=== PATIENT | female | born 1950 | race African-American/Black ===

== ENCOUNTER 2017-10-20 12:56 | Observation (INO) | payer MEDICARE, MEDICAID ==
[2017-10-20] VITALS (11 sets, daily range): BP systolic 127–152; BP diastolic 62–74; PULSE 56–64; RESP 16–18; TEMP 98–98.6; O2SAT 97–99
[~2017-10-20] VITALS: Ht 157.5 cm; Wt 60.0 kg
[~2017-10-20 12:56] MED LIST: ATEN1TAB74 PO; BENZ1TAB PO; CALC500T21 PO; FLUP10 PO; HYDR-2768 PO; HYDR100T2 PO; PIOG15TA9 PO; PRAV20TA PO; RAMI10CA35 PO; RISP4TAB2 PO
--- NOTE | 2017-10-20 13:12 | PD ---
HPI Chief Complaint: Chest Pain Time Seen by Provider: 13:06 Travel History International Travel<30 days: No Contact w/Intl Traveler<30days: No Traveled to known affect area: No History of Present Illness HPI This is a 67-year-old female who presents from an assisted living facility. According to records from her [facility] she has a history of hyperlipidemia, hypertension, constipation as well as "psychiatric." Per our chart review it appears that she may have a history of schizoaffective disorder from ER visit notes over 10 years ago. She presents today via EMS for evaluation of chest pain. She reports a prior to arrival she was playing [email or web address] when she developed some substernal chest pain which she describes as a pressure. It lasted for 10 minutes and then resolved. She denies any shortness of breath, cough, congestion, nausea, vomiting, fevers, chills, abdominal pain. She is uncertain whether or not she has ever had this pain before. Denies any aspirin use today. PFSH Past Medical History Diabetes: Yes Hypertension: Yes Psychiatric: Yes ?: Not Social History Alcohol Use: No Tobacco Use: No Substance Use: No Allergies-Medications (Allergen,Severity, Reaction): Coded Allergies: No Known Allergies (Unverified , 02/09/15) Reported Meds & Prescriptions Reported Meds & Active Scripts Active Reported Calcium 600+D 200 (Calcium Carbonate-Vitamin D) 600-200 Mg-Unit Tab 1 Tab PO BID Risperdal (Risperidone) 4 Mg Tab 4 Mg PO Q12HR Tylenol Extra Strength (Acetaminophen) 500 Mg Tablet 500 Mg PO BID Altace (Ramipril) 10 Mg Cap 10 Mg PO BID Actos (Pioglitazone HCl) 15 Mg Tab 15 Mg PO DAILY Tenormin (Atenolol) 25 Mg Tab 25 Mg PO DAILY Hydrochlorothiazide 12.5 Mg Cap 12.5 Mg PO DAILY Fluphenazine Decanoate Inj (Fluphenazine Decanoate) 125 Mg/5 Ml Inj 50 Mg SQ EVERY 3 WEEKS Remeron (Mirtazapine) 30 Mg Tab 30 Mg PO HS Pravachol (Pravastatin) 20 Mg Tab 20 Mg PO HS Hydralazine HCl 50 Mg Tablet 50 Mg PO TID Benztropine (Benztropine Mesylate) 0.5 Mg Tab 2 Mg PO BID Review of Systems Except as stated in HPI: all other systems reviewed are Neg Physical Exam Narrative GENERAL: Well-developed well-nourished female in no acute distress SKIN: Warm and dry. HEAD: Atraumatic. Normocephalic. EYES: Pupils equal and round. No scleral icterus. No injection or drainage. ENT: No nasal bleeding or discharge. Mucous membranes pink and moist. NECK: Trachea midline. No JVD. CARDIOVASCULAR: Regular rate and rhythm. No murmur appreciated. RESPIRATORY: No accessory muscle use. Clear to auscultation. Breath sounds equal bilaterally. GASTROINTESTINAL: Abdomen soft, non-tender, nondistended. Hepatic and splenic margins not palpable. MUSCULOSKELETAL: No obvious deformities. No clubbing. No cyanosis. No edema. NEUROLOGICAL: Awake and alert. No obvious cranial nerve deficits. Motor grossly within normal limits. Normal speech. PSYCHIATRIC: Appropriate mood and affect; insight and judgment normal. Data Data Last Documented VS Vital Signs Date Time Temp Pulse Resp B/P (MAP) Pulse Ox O2 Delivery O2 Flow Rate FiO2 10/20/17 13:16 99 Room Air 10/20/17 13:10 56 18 10/20/17 13:04 142/65 (90) Orders Orders Electrocardiogram (10/20/17 13:09) Basic Metabolic Panel (Bmp) (10/20/17 13:09) Ckmb (Isoenzyme) Profile (10/20/17 13:09) Complete Blood Count With Diff (10/20/17 13:09) Magnesium (Mg) (10/20/17 13:09) Prothrombin Time / Inr (Pt) (10/20/17 13:09) Act Partial Throm Time (Ptt) (10/20/17 13:09) Troponin I (10/20/17 13:09) Chest, Single Ap (10/20/17 13:09) Ecg Monitoring (10/20/17 13:09) Bilateral Bp Monitoring (10/20/17 13:09) Iv Access Insert/Monitor (10/20/17 13:09) Oximetry (10/20/17 13:09) Oxygen Administration (10/20/17 13:09) Aspirin Chew (Aspirin Chew) (10/20/17 13:15) Sodium Chloride 0.9% Flush (Ns Flush) (10/20/17 13:15) CKMB (10/20/17 13:30) CKMB% (10/20/17 13:30) Admit Order (Ed Use Only) (10/20/17 14:39) Labs Laboratory Tests Test 10/20/17 13:30 White Blood Count 6.1 TH/MM3 Red Blood Count 4.02 MIL/MM3 Hemoglobin 12.8 GM/DL Hematocrit 37.5 % Mean Corpuscular Volume 93.4 FL Mean Corpuscular Hemoglobin 31.8 PG Mean Corpuscular Hemoglobin Concent 34.1 % Red Cell Distribution Width 14.0 % Platelet Count 214 TH/MM3 Mean Platelet Volume 8.2 FL Neutrophils (%) (Auto) 52.6 % Lymphocytes (%) (Auto) 35.5 % Monocytes (%) (Auto) 9.7 % Eosinophils (%) (Auto) 0.9 % Basophils (%) (Auto) 1.3 % Neutrophils # (Auto) 3.2 TH/MM3 Lymphocytes # (Auto) 2.2 TH/MM3 Monocytes # (Auto) 0.6 TH/MM3 Eosinophils # (Auto) 0.1 TH/MM3 Basophils # (Auto) 0.1 TH/MM3 CBC Comment DIFF FINAL Differential Comment Prothrombin Time 10.2 SEC Prothromb Time International Ratio 1.0 RATIO Activated Partial Thromboplast Time 22.3 SEC Blood Urea Nitrogen 9 MG/DL Creatinine 0.85 MG/DL Random Glucose 97 MG/DL Calcium Level 9.0 MG/DL Magnesium Level 1.7 MG/DL Sodium Level 131 MEQ/L Potassium Level 3.5 MEQ/L Chloride Level 96 MEQ/L Carbon Dioxide Level 30.3 MEQ/L Anion Gap 5 MEQ/L Estimat Glomerular Filtration Rate 81 ML/MIN Total Creatine Kinase 139 U/L Creatine Kinase MB 0.9 NG/ML Troponin I LESS THAN 0.02 NG/ML MDM Medical Decision Making Medical Screen Exam Complete: Yes Emergency Medical Condition: Yes Medical Record Reviewed: Yes Interpretation(s) EKG reveals sinus rhythm, T-wave inversions noted in the inferior leads Differential Diagnosis Angina, acute coronary syndrome, costochondritis, pericarditis, myocarditis, pneumonia, spontaneous pneumothorax Narrative Course The patient was placed on ECG monitoring pulse oximetry. A twelve-lead EKG was obtained. Plan is for basic lab work, chest x-ray. The patient was given a full dose aspirin. The patient remained chest pain-free during her hospital stay. Lab work and chest x-ray are reassuring. At this point in time the plan would be to admit the patient into the chest pain center for serial cardiac enzymes and rule out purposes. She is agreeable. Diagnosis Primary Impression: Chest pain Admitting Information Admitting Physician Requests: Observation Holger Parks Oct 20, 2017 13:12
[2017-10-20] MEDS ORDERED: ASPIRIN 81 MG CHEW TAB PO ONE (13:15)
[2017-10-20] MEDS ORDERED: ATEN1TAB73 PO (13:29)
[2017-10-20] MEDS ORDERED: RISP4TAB41 PO (13:29)
[2017-10-20] MEDS ORDERED: REME30TA PO (13:29)
[2017-10-20] MEDS ORDERED: HYDR12.57 PO (13:29)
[2017-10-20] MEDS ORDERED: ACET-822 PO (13:29)
[2017-10-20] MEDS ORDERED: ALTA10CA12 PO (13:29)
[2017-10-20] MEDS ORDERED: PRAV20TA PO (13:29)
[2017-10-20] MEDS ORDERED: HYDR-3800 PO (13:29)
[2017-10-20] MEDS ORDERED: BENZ0.5T PO (13:29)
[2017-10-20] MEDS ORDERED: FLUP1INJ SQ (13:29)
[2017-10-20] MEDS ORDERED: TH C600T4 PO (13:29)
[2017-10-20] MEDS ORDERED: ACTO15TA22 PO (13:29)
[2017-10-20] MEDS ORDERED: CALCTAB19 PO (13:30)
[2017-10-20 13:52] LABS: AUTOMATED NEUTROPHIL # 3.2 TH/MM3 (1.8-7.7); BASOPHIL # 0.1 TH/MM3 (0-0.2); BASOPHIL % 1.3 % (0.0-2.0); EOSINOPHIL # 0.1 TH/MM3 (0-0.4); EOSINOPHIL % 0.9 % (0.0-4.0); HEMATOCRIT 37.5 % (35.0-46.0); HEMOGLOBIN 12.8 GM/DL (11.6-15.3); LYMPH % 35.5 % (9.0-44.0); LYMPHOCYTE # 2.2 TH/MM3 (1.0-4.8); MEAN CELL VOLUME 93.4 FL (80.0-100.0); MEAN CORPUSCULAR HEMOGLOBIN 31.8 PG (27.0-34.0); MEAN CORPUSCULAR HGB CONC 34.1 % (32.0-36.0); MEAN PLATELET VOLUME 8.2 FL (7.0-11.0); MONO % 9.7 % (0.0-8.0); MONOCYTE # 0.6 TH/MM3 (0-0.9); NEUT % 52.6 % (16.0-70.0); PLATELET COUNT 214 TH/MM3 (150-450); RED BLOOD COUNT 4.02 MIL/MM3 (4.00-5.30); WHITE BLOOD COUNT 6.1 TH/MM3 (4.0-11.0)
[2017-10-20 14:05] LABS: PROTHROMBIN TIME - PATIENT 10.2 SEC (9.8-11.6)
[2017-10-20 14:15] LABS: BICARBONATE 30.3 MEQ/L (21.0-32.0); BLOOD UREA NITROGEN 9 MG/DL (7-18); CHLORIDE 96 MEQ/L (98-107); CREATININE 0.85 MG/DL (0.50-1.00); GLOMERULAR FILTRATION RATE 81 ML/MIN (>89); GLUCOSE,RANDOM 97 MG/DL (74-106); SODIUM (NA) 131 MEQ/L (136-145); TROPONIN I LESS THAN 0.02 NG/ML (0.02-0.05)
[2017-10-20 14:16] LABS: MAGNESIUM 1.7 MG/DL (1.5-2.5)
--- NOTE | 2017-10-20 14:28 | RADRPT ---
EXAM DATE/TIME: 10/20/2017 13:53 [facility] COMPARISON: No previous studies available for comparison. INDICATIONS : Chest pain. MEDICAL HISTORY : Hypercholesterolemia. Hypertension Diabetes mellitus type II. SURGICAL HISTORY : None. ENCOUNTER: Initial ACUITY: 1 day PAIN SCORE: 5/10 LOCATION: Bilateral chest FINDINGS: The cardiac silhouette is enlarged in transverse diameter. The lungs are free of acute parenchymal op acity. No effusions are identified. Osseous structures are intact. CONCLUSION: Cardiomegaly. No acute cardiopulmonary disease. Adolfo Walter MD on October 20, 2017 at 14:25 Board Certified Radiologist. This report was verified electronically.
--- NOTE | 2017-10-20 14:51 | PD ---
Physical Exam Narrative GENERAL: Well-nourished, well-developed patient. SKIN: Warm and dry. HEAD: Normocephalic and atraumatic. EYES: No injection or drainage. ENT: No nasal drainage noted. NECK: Supple, trachea midline. CARDIOVASCULAR: Regular rate and rhythm RESPIRATORY: no increased effort. No accessory muscle use. NEUROLOGICAL: Awake and alert. Motor and sensory grossly within normal limits. Normal speech Data Data Last Documented VS Vital Signs Date Time Temp Pulse Resp B/P (MAP) Pulse Ox O2 Delivery O2 Flow Rate FiO2 10/20/17 13:16 99 Room Air 10/20/17 13:10 56 18 10/20/17 13:04 142/65 (90) Orders Orders Electrocardiogram (10/20/17 13:09) Basic Metabolic Panel (Bmp) (10/20/17 13:09) Ckmb (Isoenzyme) Profile (10/20/17 13:09) Complete Blood Count With Diff (10/20/17 13:09) Magnesium (Mg) (10/20/17 13:09) Prothrombin Time / Inr (Pt) (10/20/17 13:09) Act Partial Throm Time (Ptt) (10/20/17 13:09) Troponin I (10/20/17 13:09) Chest, Single Ap (10/20/17 13:09) Ecg Monitoring (10/20/17 13:09) Bilateral Bp Monitoring (10/20/17 13:09) Iv Access Insert/Monitor (10/20/17 13:09) Oximetry (10/20/17 13:09) Oxygen Administration (10/20/17 13:09) Aspirin Chew (Aspirin Chew) (10/20/17 13:15) Sodium Chloride 0.9% Flush (Ns Flush) (10/20/17 13:15) CKMB (10/20/17 13:30) CKMB% (10/20/17 13:30) Admit Order (Ed Use Only) (10/20/17 14:39) Labs Laboratory Tests Test 10/20/17 13:30 White Blood Count 6.1 TH/MM3 Red Blood Count 4.02 MIL/MM3 Hemoglobin 12.8 GM/DL Hematocrit 37.5 % Mean Corpuscular Volume 93.4 FL Mean Corpuscular Hemoglobin 31.8 PG Mean Corpuscular Hemoglobin Concent 34.1 % Red Cell Distribution Width 14.0 % Platelet Count 214 TH/MM3 Mean Platelet Volume 8.2 FL Neutrophils (%) (Auto) 52.6 % Lymphocytes (%) (Auto) 35.5 % Monocytes (%) (Auto) 9.7 % Eosinophils (%) (Auto) 0.9 % Basophils (%) (Auto) 1.3 % Neutrophils # (Auto) 3.2 TH/MM3 Lymphocytes # (Auto) 2.2 TH/MM3 Monocytes # (Auto) 0.6 TH/MM3 Eosinophils # (Auto) 0.1 TH/MM3 Basophils # (Auto) 0.1 TH/MM3 CBC Comment DIFF FINAL Differential Comment Prothrombin Time 10.2 SEC Prothromb Time International Ratio 1.0 RATIO Activated Partial Thromboplast Time 22.3 SEC Blood Urea Nitrogen 9 MG/DL Creatinine 0.85 MG/DL Random Glucose 97 MG/DL Calcium Level 9.0 MG/DL Magnesium Level 1.7 MG/DL Sodium Level 131 MEQ/L Potassium Level 3.5 MEQ/L Chloride Level 96 MEQ/L Carbon Dioxide Level 30.3 MEQ/L Anion Gap 5 MEQ/L Estimat Glomerular Filtration Rate 81 ML/MIN Total Creatine Kinase 139 U/L Creatine Kinase MB 0.9 NG/ML Troponin I LESS THAN 0.02 NG/ML MDM Supervised Visit with BRISA: Yes Interpretation(s) CBC & BMP Diagram 10/20/17 13:30 Calcium Level 9.0, Magnesium Level 1.7 Last 24 hours Impressions Chest X-Ray 10/20/17 1309 Signed Impressions: Service Date/Time: Friday, October 20, 2017 13:53 - CONCLUSION: Cardiomegaly. No acute cardiopulmonary disease. Adolfo Walter MD Narrative Course I, Dr. easton, have reviewed the advance practice practitioner's documentation and am in agreement, met with the patient face to face, made the diagnosis, and the medical decision making was done by me. *My assessment and Findings: 67-year-old female presents with chest pain. Initial cardiac workup no acute. Agrees to observation Physician Communication Physician Communication dr sosa agrees to admit Diagnosis Primary Impression: Chest pain Qualified Codes: R07.9 - Chest pain, unspecified Admitting Information Admitting Physician Requests: Observation Jeanne Easton MD Oct 20, 2017 14:51
[2017-10-20] MEDS ORDERED: ONDANSETRON HCL 4 MG/2 ML VIAL IV PUSH PRN (15:15)
[2017-10-20] MEDS ORDERED: ACETAMINOPHEN 500 MG CPLT PO PRN (15:15)
[2017-10-20] MEDS ORDERED: ACETAMINOPHEN/HYDROcodone 325 MG/7.5 MG TAB PO PRN (15:15)
--- NOTE | 2017-10-20 15:27 | HHI.HP ---
HPI Primary Care Physician No Primary Care Physician Chief Complaint Chest pain History of Present Illness This is a 67-year-old female that presents to ED via ambulance from [facility] with a client of chest discomfort. She states it occurred while she was playing solitaire. Points to the substernal region her chest. Describes as "real bad." Lasted 5 minutes. Did not radiate. Found nothing to worsen or improve it. States the discomfort had resolved before the ambulance had arrived. Has not recurred. Denies shortness breath, nausea, or diaphoresis. Denies recent illness. Denies fevers or chills. The patient's daughter and brother at the bedside. Denies history of CAD. Her daughter states that she believes she had a chemical stress test a few years ago at a different facility. Does not know the results. Review of Systems General: Patient denies fevers, chills recent, and recent travel HEENT: Patient denies headache, sore throat, difficulty swallowing. Cardiovascular: Has the chest discomfort as mentioned above. Denies sensation of heart beating rapidly or irregularly. No syncope. Denies diaphoresis. Respiratory: Denies shortness of breath or inspirational chest discomfort. Denies coughing wheezing or hemoptysis. GI: Patient denies nausea, vomiting, diarrhea, abdominal pain, bloody stools. Musculoskeletal: Patient denies joint pain or edema. Denies calf pain or edema. Neurovascular: Patient denies numbness, tingling, weakness in extremities. Denies headache. Endocrine: Denies polyuria and polydipsia. Hematologic: Denies easy bruising. Skin: Denies rash or itching. Past Family Social History Allergies: Coded Allergies: No Known Allergies (Unverified , 02/09/15) Past Medical History Hypertension, hyperlipidemia, diabetes, tobacco abuse, schizoaffective disorder. Denies CAD. Past Surgical History Noncontributory. Reported Medications Reported Meds & Active Scripts Active Reported Calcium 600+D 200 (Calcium Carbonate-Vitamin D) 600-200 Mg-Unit Tab 1 Tab PO BID Risperdal (Risperidone) 4 Mg Tab 4 Mg PO Q12HR Tylenol Extra Strength (Acetaminophen) 500 Mg Tablet 500 Mg PO BID Altace (Ramipril) 10 Mg Cap 10 Mg PO BID Actos (Pioglitazone HCl) 15 Mg Tab 15 Mg PO DAILY Tenormin (Atenolol) 25 Mg Tab 25 Mg PO DAILY Hydrochlorothiazide 12.5 Mg Cap 12.5 Mg PO DAILY Fluphenazine Decanoate Inj (Fluphenazine Decanoate) 125 Mg/5 Ml Inj 50 Mg SQ EVERY 3 WEEKS Remeron (Mirtazapine) 30 Mg Tab 30 Mg PO HS Pravachol (Pravastatin) 20 Mg Tab 20 Mg PO HS Hydralazine HCl 50 Mg Tablet 50 Mg PO TID Benztropine (Benztropine Mesylate) 0.5 Mg Tab 2 Mg PO BID Active Ordered Medications Current Medications Medications (Trade) Dose Ordered Sig/Cristina Route Start Time Stop Time Status Last Admin (NS Flush) 2 ml UNSCH PRN IVF 10/20/17 13:15 (Tylenol) 500 mg Q4H PRN PO 10/20/17 15:15 UNV (Blodgett 7.5-325 Mg) 1 tab Q4H PRN PO 10/20/17 15:15 UNV (Zofran Inj) 4 mg Q6H PRN IV PUSH 10/20/17 15:15 UNV (Aspirin) 325 mg DAILY PO 10/21/17 09:00 UNV (Tenormin) 25 mg DAILY PO 10/21/17 09:00 UNV (Cogentin) 2 mg BID PO 10/20/17 21:00 UNV (Apresoline) 50 mg TID PO 10/20/17 18:00 UNV (Microzide) 12.5 mg DAILY PO 10/21/17 09:00 UNV (Remeron Soltab Odt) 30 mg HS PO 10/20/17 21:00 UNV (Pravachol) 20 mg HS PO 10/20/17 21:00 UNV (Altace) 10 mg BID PO 10/20/17 21:00 UNV Non-Formulary Medication 1 tab BID PO 10/20/17 21:00 UNV Non-Formulary Medication 4 mg Q12HR PO 10/20/17 21:00 UNV Family History Denies family history of CAD. Social History Continues to smoke about one half pack of cigarettes daily for 35 years. Denies alcohol or illicit drugs. Lives at [facility]. Physical Exam Vital Signs Vital Signs Date Time Temp Pulse Resp B/P (MAP) Pulse Ox O2 Delivery O2 Flow Rate FiO2 10/20/17 13:16 99 Room Air 10/20/17 13:16 99 Room Air 10/20/17 13:10 56 18 99 Room Air 10/20/17 13:04 56 18 142/65 (90) 99 Physical Exam GENERAL: This is a well-nourished, well-developed patient, in no apparent distress. Patient speaks in clear complete sentences. Patient is pleasant. HEENT: Head is atraumatic and normocephalic. Neck is supple without lymphadenopathy and trachea is midline. No JVD or carotid bruits. CARDIOVASCULAR: Grade 2 systolic murmur right sternal border. Does not radiate to the neck. Regular rate and rhythm without gallops or rubs. RESPIRATORY: Mild expiratory wheezes bilateral bases. Breath sounds equal bilaterally. No rales or rhonchi. Chest wall is nontender. No use of accessory muscles. GASTROINTESTINAL: Abdomen is nontender, nondistended. Abdomen soft. No obvious pulsatile mass or bruit. No CVA tenderness. Strong femoral pulses bilaterally. Normal bowel sounds in all quadrants. MUSCULOSKELETAL: Patient is moving upper and lower extremities freely. No calf tenderness or edema, no Homans sign. Strong pulses in upper and lower extremities. NEUROLOGICAL: Patient is alert and oriented. Cranial nerves 2-12 are grossly intact. No focal deficits and speech is clear. SKIN: No rash and turgor is normal. Laboratory Laboratory Tests Test 10/20/17 13:30 White Blood Count 6.1 Red Blood Count 4.02 Hemoglobin 12.8 Hematocrit 37.5 Mean Corpuscular Volume 93.4 Mean Corpuscular Hemoglobin 31.8 Mean Corpuscular Hemoglobin Concent 34.1 Red Cell Distribution Width 14.0 Platelet Count 214 Mean Platelet Volume 8.2 Neutrophils (%) (Auto) 52.6 Lymphocytes (%) (Auto) 35.5 Monocytes (%) (Auto) 9.7 Eosinophils (%) (Auto) 0.9 Basophils (%) (Auto) 1.3 Neutrophils # (Auto) 3.2 Lymphocytes # (Auto) 2.2 Monocytes # (Auto) 0.6 Eosinophils # (Auto) 0.1 Basophils # (Auto) 0.1 CBC Comment DIFF FINAL Differential Comment Prothrombin Time 10.2 Prothromb Time International Ratio 1.0 Activated Partial Thromboplast Time 22.3 Blood Urea Nitrogen 9 Creatinine 0.85 Random Glucose 97 Calcium Level 9.0 Magnesium Level 1.7 Sodium Level 131 Potassium Level 3.5 Chloride Level 96 Carbon Dioxide Level 30.3 Anion Gap 5 Estimat Glomerular Filtration Rate 81 Total Creatine Kinase 139 Creatine Kinase MB 0.9 Troponin I LESS THAN 0.02 Result Diagram: 10/20/17 1330 10/20/17 1330 Imaging Last 48 hours Impressions Chest X-Ray 10/20/17 1309 Signed Impressions: Service Date/Time: Friday, October 20, 2017 13:53 - CONCLUSION: Cardiomegaly. No acute cardiopulmonary disease. Adolfo Walter MD Course Initial EKG sinus bradycardia without significant ST segment depressions or elevations. There are nonspecific inferior and lateral T-wave changes. Caprini VTE Risk Assessment Caprini VTE Risk Assessment: Mod/High Risk (score >= 2) Caprini Risk Assessment Model Point Value = 1 Point Value = 2 Point Value = 3 Point Value = 5 Age 41-60 Minor surgery BMI > 25 kg/m2 Swollen legs Varicose veins or History of unexplained or recurrent spontaneous Oral contraceptives or hormone replacement Sepsis (< 1 month) Serious lung disease, including pneumonia (< 1 month) Abnormal pulmonary function Acute myocardial infarction Congestive heart failure (< 1 month) History of inflammatory bowel disease Medical patient at bed rest Age 61-74 Arthroscopic surgery Major open surgery (> 45 min) Laparoscopic surgery (> 45 min) Malignancy Confined to bed (> 72 hours) Immobilizing plaster cast Central venous access Age >= 75 History of VTE Family history of VTE Factor V Leiden Prothrombin [id number] Lupus anticoagulant Anticardiolipin antibodies Elevated serum homocysteine Heparin-induced thrombocytopenia Other congenital or acquired thrombophilia Stroke (< 1 month) Elective arthroplasty Hip, pelvis, or leg fracture Acute spinal cord injury (< 1 month) Prophylaxis Regimen Total Risk Factor Score Risk Level Prophylaxis Regimen 0-1 Low Early ambulation 2 Moderate Order ONE of the following: *Sequential Compression Device (SCD) *Heparin 5000 units SQ BID 3-4 Higher Order ONE of the following medications: *Heparin 5000 units SQ TID *Enoxaparin/Lovenox 40 mg SQ daily (WT < 150 kg, CrCl > 30 mL/min) *Enoxaparin/Lovenox 30 mg SQ daily (WT < 150 kg, CrCl > 10-29 mL/min) *Enoxaparin/Lovenox 30 mg SQ BID (WT < 150 kg, CrCl > 30 mL/min) AND/OR *Sequential Compression Device (SCD) 5 or more Highest Order ONE of the following medications: *Heparin 5000 units SQ TID (Preferred with Epidurals) *Enoxaparin/Lovenox 40 mg SQ daily (WT < 150 kg, CrCl > 30 mL/min) *Enoxaparin/Lovenox 30 mg SQ daily (WT < 150 kg, CrCl > 10-29 mL/min) *Enoxaparin/Lovenox 30 mg SQ BID (WT < 150 kg, CrCl > 30 mL/min) AND *Sequential Compression Device (SCD) Assessment and Plan Assessment and Plan * Chest pain: Patient will continue to have serial cardiac enzymes and EKGs for ruling out purposes. She has been seen by Dr. Beach of cardiology in the chest pain center and will have a Lexiscan in the morning if she rules out. The patient and family are agreeable to this plan. She'll be discharged home if her stress test is nonischemic with instructions to follow back with PCP and to return to ED for interval issues. * Hypertension: Continue current medication. * Hyperlipidemia: Continue current medication. * Diabetes: Diabetic diet. Sliding scale insulin coverage while in chest pain center. Resume medication at discharge and continue diabetic diet. * Tobacco abuse: Patient has been counseled on importance of smoking cessation. Patient is stable at this time. She is agreeable to this plan. Hudson Yin Oct 20, 2017 15:27
[2017-10-20] MEDS ORDERED: DEXTROSE 50% IN WATER 50 ML VIAL(D50) IV PUSH PRN (15:30)
[2017-10-20] MEDS ORDERED: GLUCAGON 1 MG/ML VIAL OTHER PRN (15:30)
[2017-10-20] MEDS ORDERED: RESP: ALBUTEROL 2.5 MG/IPRATROPIUM 0.5 MG NEB (PRN) INH (15:30)
[2017-10-20] MEDS: INSULIN ASPART SUPPLEMENTAL SCALE SQ SCH ×2 (17:00→21:00)
[2017-10-20] MEDS: hydrALAZINE HCL 50 MG TAB PO SCH (17:17)
[2017-10-20 17:39] LABS: TROPONIN I LESS THAN 0.02 NG/ML (0.02-0.05)
[2017-10-20] MEDS ORDERED: NON-FORMULARY DRUG (Calcium Carbonate-Vitamin D (Calcium 600+D 200) 1 TAB) PO SCH (21:00)
[2017-10-20] MEDS ORDERED: PRAVASTATIN SOD 20 MG TAB PO SCH (21:00)
[2017-10-20] MEDS ORDERED: MIRTAZAPINE ODT 30 MG TAB PO SCH (21:00)
[2017-10-20 21:15] LABS: TROPONIN I LESS THAN 0.02 NG/ML (0.02-0.05)
[2017-10-20] MEDS: SODIUM CHLORIDE 0.9% FLUSH 10 ML FLUSH IVF PRN (23:12)
[2017-10-20] MEDS: CALCIUM/VITAMIN D 250 MG/125 U TAB PO SCH (23:13)
[2017-10-20] MEDS: RAMIPRIL 5 MG CAP PO SCH (23:13)
[2017-10-20] MEDS: risperiDONE 1 MG TAB PO SCH (23:14)
[2017-10-20] MEDS: BENZTROPINE MESYLATE 1 MG TAB PO SCH (23:57)
[2017-10-21 03:49] VITALS: BP 100/58; PULSE 59; RESP 17; TEMP 98.1; O2SAT 96
[2017-10-21 03:50] VITALS: PULSE 59
[2017-10-21] MEDS: INSULIN ASPART SUPPLEMENTAL SCALE SQ SCH (08:00)
[2017-10-21] MEDS: CALCIUM/VITAMIN D 250 MG/125 U TAB PO SCH (08:04)
[2017-10-21] MEDS: BENZTROPINE MESYLATE 1 MG TAB PO SCH (08:04)
[2017-10-21] MEDS: hydrALAZINE HCL 50 MG TAB PO SCH (08:04)
[2017-10-21] MEDS: RAMIPRIL 5 MG CAP PO SCH (08:04)
[2017-10-21] MEDS: SODIUM CHLORIDE 0.9% FLUSH 10 ML FLUSH IVF PRN (08:05)
[2017-10-21] MEDS: risperiDONE 1 MG TAB PO SCH (08:05)
[2017-10-21 08:48] VITALS: BP 122/58; PULSE 56; RESP 20; TEMP 98.6; O2SAT 96
[2017-10-21] MEDS ORDERED: ASPIRIN 325 MG TAB PO SCH (09:00)
[2017-10-21] MEDS ORDERED: HYDROCHLOROTHIAZIDE 12.5 MG CAP PO SCH (09:00)
[2017-10-21] MEDS ORDERED: ATENOLOL 25 MG TAB PO SCH (09:00)
[2017-10-21] MEDS ORDERED: REGADENOSON INJ 0.4 MG/5 ML SYR ONE (11:06)
[2017-10-21 12:57] VITALS: BP 136/64; PULSE 63; RESP 20; TEMP 98.2; O2SAT 95
--- NOTE | 2017-10-21 13:11 | RADRPT ---
EXAM DATE/TIME: 10/21/2017 10:53 [facility] COMPARISON: No previous studies available for comparison. INDICATIONS : Substernal chest pain. Angina. DOSE: 26.1 mCi Tc99m Myoview at stress. 8.4 mCi Tc99m Myoview at rest. 0.4 mg Lexiscan STRESS SYMPTOMS: Tired feeling. EJECTION FRACTION: > 70% MEDICAL HISTORY : Diabetes mellitus type 2. Hypercholesterolemia. Hypertension. Smoker. SURGICAL HISTORY : None. ENCOUNTER: Initial ACUITY: 1 day PAIN SCALE: 7/10 LOCATION: Substernal chest TECHNIQUE: The patient underwent pharmacologic stress with infusion of prescribed dose. Continuous ECG tracing was monitored during stress. Gated SPECT imaging was performed after stress and conventional SPECT i maging was performed at rest. The examination was performed on a SPECT/CT scanner, both attenuation and non-corrected datasets were reviewed. FINDINGS: The gated cineloop images demonstrate no focal wall motion probably. Left ventricular ejection fracti on is calculated at greater than 70%. The cardiac SPECT stress and rest images obtained no fixed or reversible defects to suggest infarct o r ischemia. CONCLUSION: No infarct, ischemia or focal wall motion abnormality. RISK CATEGORY: Low risk (less than 1% annual mortality rate). Gregory Mendoza MD on October 21, 2017 at 13:06 Board Certified Radiologist. This report was verified electronically.
--- NOTE | 2017-10-21 13:19 | HHI.DCPOC ---
Discharge Care Plan Diagnosis: (1) Chest pain (2) Hypertension (3) Hyperlipidemia (4) DM (diabetes mellitus) (5) Tobacco abuse Goals to Promote Your Health * To prevent worsening of your condition and complications * To maintain your health at the optimal level Directions to Meet Your Goals Take your medications as prescribed Follow your dietary instruction Follow activity as directed Keep your appointments as scheduled Take your immunizations and boosters as scheduled If your symptoms worsen call your PCP, if no PCP go to Urgent Care Center or Emergency Room Smoking is Dangerous to Your Health. Avoid second hand smoke Call the 24-hour hour crisis hotline for domestic abuse at Hudson Yin Oct 21, 2017 13:19
--- NOTE | 2017-10-21 14:42 | TR ---
Date Performed: 10/21/2017 Time Performed: 11:16:21 DOCTOR: Gilmer Beach DRUG LIST: CLINICAL HISTORY: REASON FOR TEST: CHEST PAIN REASON FOR ENDING: OBSERVATION: CONCLUSION: Lexiscan stress test was performed under standard four minute protocol. Radionuclid e was injected one minute prior to ending the test. No electrocardiographic abormalities were present to suggest ischemia. Nuclear imaging and interpretation are pending. COMMENTS:
--- NOTE | 2017-10-21 14:44 | EKG ---
Date Performed: 10/20/2017 Time Performed: 17:01:02 PTAGE: 67 years EKG: SINUS BRADYCARDIA MARKED LEFT AXIS DEVIATION POSSIBLE RIGHT VENTRICULAR CONDUCTION DELAY NO NSPECIFIC T-WAVE ABNORMALITY ABNORMAL ECG PREVIOUS TRACING : 10/20/2017 13.09 Since previous tracing, no significant change noted DOCTOR: Gilmer Beach Interpretating Date/Time 10/21/2017 14:44:31
--- NOTE | 2017-10-21 14:47 | EKG ---
Date Performed: 10/20/2017 Time Performed: 13:09:52 PTAGE: 67 years EKG: SINUS BRADYCARDIA BORDERLINE LEFT AXIS DEVIATION INCOMPLETE RIGHT BUNDLE BRANCH BLOCK MINIM AL VOLTAGE CRITERIA FOR LVH, CONSIDER NORMAL VARIANT NONSPECIFIC T-WAVE ABNORMALITY BORDERLINE ECG NO PREVIOUS TRACING DOCTOR: Gilmer Beach Interpretating Date/Time 10/21/2017 14:45:25
--- NOTE | 2017-10-21 14:47 | EKG ---
Date Performed: 10/20/2017 Time Performed: 20:54:40 PTAGE: 67 years EKG: SINUS BRADYCARDIA MARKED LEFT AXIS DEVIATION POSSIBLE RIGHT VENTRICULAR CONDUCTION DELAY NO NSPECIFIC T-WAVE ABNORMALITY ABNORMAL ECG PREVIOUS TRACING : 10/20/2017 17.01 Since previous tracing, no significant change noted DOCTOR: Gilmer Beach Interpretating Date/Time 10/21/2017 14:46:14
== END 2017-10-21 14:59 | disposition home or self-care (01) ==
LOC: NEPE 12:56 → NEDA 14:40 → NEPFCDU 16:32
DX: R07.9 Chest pain, unspecified (principal); I10 Essential (primary) hypertension; R94.31 Abnormal electrocardiogram [ECG] [EKG]; E78.5 Hyperlipidemia, unspecified; E11.9 Type 2 diabetes mellitus without complications; F17.200 Nicotine dependence, unspecified, uncomplicated; F25.9 Schizoaffective disorder, unspecified; Z79.84 Long term (current) use of oral hypoglycemic drugs
CPT/HCPCS: 71045; 78452; 80048; 82550; 82552; 82948; 83735; 84484; 85025; 85610; 85730; 93005; 93017; 99285; A9502; G0378; J2785

== ENCOUNTER 2017-12-21 20:48 | Emergency (ER) | payer MEDICARE, MEDICAID ==
[~2017-12-21] VITALS: Ht 157.5 cm; Wt 65.0 kg
[~2017-12-21 20:48] MED LIST changes: +ACET-822 PO; +ACTO15TA22 PO; +ALTA10CA12 PO; +ATEN1TAB73 PO; -ATEN1TAB74 PO; +BENZ0.5T PO; -BENZ1TAB PO; -CALC500T21 PO; +CALCTAB19 PO; -FLUP10 PO; +FLUP1INJ SQ; -HYDR-2768 PO; +HYDR-3800 PO; -HYDR100T2 PO; +HYDR12.57 PO; -PIOG15TA9 PO; -RAMI10CA35 PO; +REME30TA PO; -RISP4TAB2 PO; +RISP4TAB41 PO
[2017-12-21 21:06] VITALS: BP 167/79; PULSE 68; RESP 17; TEMP 98.7; O2SAT 97
[2017-12-21 21:53] LABS: AUTOMATED NEUTROPHIL # 3.5 TH/MM3 (1.8-7.7); BASOPHIL # 0.1 TH/MM3 (0-0.2); BASOPHIL % 0.9 % (0.0-2.0); EOSINOPHIL % 0.6 % (0.0-4.0); HEMATOCRIT 38.2 % (35.0-46.0); HEMOGLOBIN 13.1 GM/DL (11.6-15.3); LYMPH % 29.3 % (9.0-44.0); LYMPHOCYTE # 1.8 TH/MM3 (1.0-4.8); MEAN CELL VOLUME 92.2 FL (80.0-100.0); MEAN CORPUSCULAR HEMOGLOBIN 31.7 PG (27.0-34.0); MEAN CORPUSCULAR HGB CONC 34.4 % (32.0-36.0); MEAN PLATELET VOLUME 8.3 FL (7.0-11.0); MONO % 12.8 % (0.0-8.0); MONOCYTE # 0.8 TH/MM3 (0-0.9); NEUT % 56.4 % (16.0-70.0); PLATELET COUNT 226 TH/MM3 (150-450); RED BLOOD COUNT 4.14 MIL/MM3 (4.00-5.30); RED CELL DISTRIBUTION WIDTH 13.3 % (11.6-17.2); WHITE BLOOD COUNT 6.2 TH/MM3 (4.0-11.0)
[2017-12-21 22:05] LABS: ALT (GPT) 29 U/L (10-53)
[2017-12-21 22:07] LABS: ALBUMIN 3.7 GM/DL (3.4-5.0); ALKALINE PHOSPHATASE 75 U/L (45-117); AST (GOT) 37 U/L (15-37); BICARBONATE 26.2 MEQ/L (21.0-32.0); BLOOD UREA NITROGEN 9 MG/DL (7-18); CALCIUM 9.7 MG/DL (8.5-10.1); CHLORIDE 101 MEQ/L (98-107); CREATININE 0.97 MG/DL (0.50-1.00); GLOMERULAR FILTRATION RATE 70 ML/MIN (>89); GLUCOSE,RANDOM 106 MG/DL (74-106); SODIUM (NA) 135 MEQ/L (136-145); TOTAL BILIRUBIN ADULT 0.5 MG/DL (0.2-1.0); TOTAL PROTEIN 7.3 GM/DL (6.4-8.2)
[2017-12-22 00:28] VITALS: BP 143/63; PULSE 63; RESP 16; O2SAT 97
--- NOTE | 2017-12-22 05:19 | PD ---
HPI Chief Complaint: Psychiatric Symptoms Time Seen by Provider: 00:52 Travel History International Travel<30 days: No Contact w/Intl Traveler<30days: No Traveled to known affect area: No History of Present Illness HPI Patient is a 67-year-old female who was sent over from a senior care where she is a long-term resident because she is becoming agitated and combative with staff. When I enter the room she I asked her if she has any issues or pain she says they are treating her horribly where she has been living for 18 years and she does understand why they treat her so poorly. She has no complaints of pain denies nausea vomiting denies abdomen pain denies chest pain patient is awake alert nontoxic-appearing and cooperative [facility] Past Medical History High Cholesterol: Yes Diabetes: Yes Patient Takes Glucophage: No Diminished Hearing: No Hypertension: Yes Psychiatric: Yes Immunizations Current: No Schizophrenia: Yes ?: Not Past Surgical History Surgical History: No Previous Surgery Social History Alcohol Use: No Tobacco Use: Yes Substance Use: No Allergies-Medications (Allergen,Severity, Reaction): Coded Allergies: No Known Allergies (Unverified Allergy, Unknown, 12/21/17) Reported Meds & Prescriptions Reported Meds & Active Scripts Active Reported Calcium 600+D 200 (Calcium Carbonate-Vitamin D) 600-200 Mg-Unit Tab 1 Tab PO BID Risperdal (Risperidone) 4 Mg Tab 4 Mg PO Q12HR Tylenol Extra Strength (Acetaminophen) 500 Mg Tablet 500 Mg PO BID Altace (Ramipril) 10 Mg Cap 10 Mg PO BID Actos (Pioglitazone HCl) 15 Mg Tab 15 Mg PO DAILY Tenormin (Atenolol) 25 Mg Tab 25 Mg PO DAILY Hydrochlorothiazide 12.5 Mg Cap 12.5 Mg PO DAILY Fluphenazine Decanoate Inj (Fluphenazine Decanoate) 125 Mg/5 Ml Inj 50 Mg SQ EVERY 3 WEEKS Remeron (Mirtazapine) 30 Mg Tab 30 Mg PO HS Pravachol (Pravastatin) 20 Mg Tab 20 Mg PO HS Hydralazine HCl 50 Mg Tablet 50 Mg PO TID Benztropine (Benztropine Mesylate) 0.5 Mg Tab 2 Mg PO BID Review of Systems Except as stated in HPI: all other systems reviewed are Neg General / Constitutional: No: Fever HENT: No: Headaches Cardiovascular: No: Chest Pain or Discomfort Gastrointestinal: No: Abdominal Pain Physical Exam Narrative GENERAL: Nontoxic appearing awake alert conversant cooperative SKIN: Warm and dry. HEAD: Atraumatic. Normocephalic. EYES: Pupils equal and round. No scleral icterus. No injection or drainage. ENT: No nasal bleeding or discharge. Mucous membranes pink and moist. NECK: Trachea midline. No JVD. CARDIOVASCULAR: Regular rate and rhythm. RESPIRATORY: No accessory muscle use. Clear to auscultation. Breath sounds equal bilaterally. GASTROINTESTINAL: Abdomen soft, non-tender, nondistended. Hepatic and splenic margins not palpable. MUSCULOSKELETAL: Extremities without clubbing, cyanosis, or edema. No obvious deformities. NEUROLOGICAL: Awake and alert. No obvious cranial nerve deficits. Motor grossly within normal limits. Five out of 5 muscle strength in the arms and legs. Normal speech. PSYCHIATRIC: Appropriate mood and affect; insight and judgment normal. Data Data Last Documented VS Vital Signs Date Time Temp Pulse Resp B/P (MAP) Pulse Ox O2 Delivery O2 Flow Rate FiO2 12/22/17 06:04 72 16 158/78 (104) Room Air 12/22/17 00:28 97 12/21/17 21:06 98.7 Orders Orders Complete Blood Count With Diff (12/21/17 21:30) Comprehensive Metabolic Panel (12/21/17 21:30) Urinalysis - C+S If Indicated (12/21/17 21:30) Psych Screen (12/21/17 21:30) Drug Screen, Random Urine (12/21/17 21:30) Labs Laboratory Tests Test 12/21/17 21:37 White Blood Count 6.2 TH/MM3 Red Blood Count 4.14 MIL/MM3 Hemoglobin 13.1 GM/DL Hematocrit 38.2 % Mean Corpuscular Volume 92.2 FL Mean Corpuscular Hemoglobin 31.7 PG Mean Corpuscular Hemoglobin Concent 34.4 % Red Cell Distribution Width 13.3 % Platelet Count 226 TH/MM3 Mean Platelet Volume 8.3 FL Neutrophils (%) (Auto) 56.4 % Lymphocytes (%) (Auto) 29.3 % Monocytes (%) (Auto) 12.8 % Eosinophils (%) (Auto) 0.6 % Basophils (%) (Auto) 0.9 % Neutrophils # (Auto) 3.5 TH/MM3 Lymphocytes # (Auto) 1.8 TH/MM3 Monocytes # (Auto) 0.8 TH/MM3 Eosinophils # (Auto) 0.0 TH/MM3 Basophils # (Auto) 0.1 TH/MM3 CBC Comment DIFF FINAL Differential Comment Blood Urea Nitrogen 9 MG/DL Creatinine 0.97 MG/DL Random Glucose 106 MG/DL Total Protein 7.3 GM/DL Albumin 3.7 GM/DL Calcium Level 9.7 MG/DL Alkaline Phosphatase 75 U/L Aspartate Amino Transf (AST/SGOT) 37 U/L Alanine Aminotransferase (ALT/SGPT) 29 U/L Total Bilirubin 0.5 MG/DL Sodium Level 135 MEQ/L Potassium Level 3.6 MEQ/L Chloride Level 101 MEQ/L Carbon Dioxide Level 26.2 MEQ/L Anion Gap 8 MEQ/L Estimat Glomerular Filtration Rate 70 ML/MIN MDM Medical Decision Making Medical Screen Exam Complete: Yes Emergency Medical Condition: Yes Differential Diagnosis Differential diagnosis is agitation secondary to psychiatric illness versus social stressors of her living situation versus psychosis Narrative Course Patient will need to be psych screened and then possibly sent back in the daytime to her living situation Diagnosis Primary Impression: Agitation Josh Issa MD Dec 22, 2017 05:19
[2017-12-22 06:04] VITALS: BP 158/78; PULSE 72; RESP 16
[2017-12-22] MEDS ORDERED: HALOPERIDOL LACTATE 5 MG/ML AMP IM ONE (07:45)
--- NOTE | 2017-12-22 07:45 | PD ---
HPI Chief Complaint: Psychiatric Symptoms Time Seen by Provider: 07:41 Travel History International Travel<30 days: No Contact w/Intl Traveler<30days: No Traveled to known affect area: No History of Present Illness HPI This report is in ERROR Please disregard this report and all prior copies ! This report is in ERROR Please disregard this report and all prior copies ! This report is in ERROR Please disregard this report and all prior copies ! GENERAL: SKIN: Warm and dry. HEAD: Atraumatic. Normocephalic. EYES: Pupils equal and round. No scleral icterus. No injection or drainage. ENT: No nasal bleeding or discharge. Mucous membranes pink and moist. NECK: Trachea midline. No JVD. CARDIOVASCULAR: Regular rate and rhythm. RESPIRATORY: No accessory muscle use. Clear to auscultation. Breath sounds equal bilaterally. GASTROINTESTINAL: Abdomen soft, non-tender, nondistended. Hepatic and splenic margins not palpable. MUSCULOSKELETAL: Extremities without clubbing, cyanosis, or edema. No obvious deformities. NEUROLOGICAL: Awake and alert. No obvious cranial nerve deficits. Motor grossly within normal limits. Five out of 5 muscle strength in the arms and legs. Normal speech. PSYCHIATRIC: Appropriate mood and affect; insight and judgment normal. PFSH Past Medical History High Cholesterol: Yes Diabetes: Yes Patient Takes Glucophage: No Diminished Hearing: No Hypertension: Yes Psychiatric: Yes Immunizations Current: No Schizophrenia: Yes ?: Not Past Surgical History Surgical History: No Previous Surgery Social History Alcohol Use: No Tobacco Use: Yes Substance Use: No Allergies-Medications (Allergen,Severity, Reaction): Coded Allergies: No Known Allergies (Unverified Allergy, Unknown, 12/21/17) Reported Meds & Prescriptions Reported Meds & Active Scripts Active Reported Calcium 600+D 200 (Calcium Carbonate-Vitamin D) 600-200 Mg-Unit Tab 1 Tab PO BID Risperdal (Risperidone) 4 Mg Tab 4 Mg PO Q12HR Tylenol Extra Strength (Acetaminophen) 500 Mg Tablet 500 Mg PO BID Altace (Ramipril) 10 Mg Cap 10 Mg PO BID Actos (Pioglitazone HCl) 15 Mg Tab 15 Mg PO DAILY Tenormin (Atenolol) 25 Mg Tab 25 Mg PO DAILY Hydrochlorothiazide 12.5 Mg Cap 12.5 Mg PO DAILY Fluphenazine Decanoate Inj (Fluphenazine Decanoate) 125 Mg/5 Ml Inj 50 Mg SQ EVERY 3 WEEKS Remeron (Mirtazapine) 30 Mg Tab 30 Mg PO HS Pravachol (Pravastatin) 20 Mg Tab 20 Mg PO HS Hydralazine HCl 50 Mg Tablet 50 Mg PO TID Benztropine (Benztropine Mesylate) 0.5 Mg Tab 2 Mg PO BID Review of Systems Except as stated in HPI: all other systems reviewed are Neg Data Data Last Documented VS Vital Signs Date Time Temp Pulse Resp B/P (MAP) Pulse Ox O2 Delivery O2 Flow Rate FiO2 12/22/17 07:47 57 18 139/58 (85) 99 12/22/17 06:04 Room Air 12/21/17 21:06 98.7 Orders Orders Complete Blood Count With Diff (12/21/17 21:30) Comprehensive Metabolic Panel (12/21/17 21:30) Urinalysis - C+S If Indicated (12/21/17 21:30) Psych Screen (12/21/17 21:30) Drug Screen, Random Urine (12/21/17 21:30) Haloperidol Inj (Haldol Inj) (12/22/17 07:45) Labs Laboratory Tests Test 12/21/17 21:37 White Blood Count 6.2 TH/MM3 Red Blood Count 4.14 MIL/MM3 Hemoglobin 13.1 GM/DL Hematocrit 38.2 % Mean Corpuscular Volume 92.2 FL Mean Corpuscular Hemoglobin 31.7 PG Mean Corpuscular Hemoglobin Concent 34.4 % Red Cell Distribution Width 13.3 % Platelet Count 226 TH/MM3 Mean Platelet Volume 8.3 FL Neutrophils (%) (Auto) 56.4 % Lymphocytes (%) (Auto) 29.3 % Monocytes (%) (Auto) 12.8 % Eosinophils (%) (Auto) 0.6 % Basophils (%) (Auto) 0.9 % Neutrophils # (Auto) 3.5 TH/MM3 Lymphocytes # (Auto) 1.8 TH/MM3 Monocytes # (Auto) 0.8 TH/MM3 Eosinophils # (Auto) 0.0 TH/MM3 Basophils # (Auto) 0.1 TH/MM3 CBC Comment DIFF FINAL Differential Comment Blood Urea Nitrogen 9 MG/DL Creatinine 0.97 MG/DL Random Glucose 106 MG/DL Total Protein 7.3 GM/DL Albumin 3.7 GM/DL Calcium Level 9.7 MG/DL Alkaline Phosphatase 75 U/L Aspartate Amino Transf (AST/SGOT) 37 U/L Alanine Aminotransferase (ALT/SGPT) 29 U/L Total Bilirubin 0.5 MG/DL Sodium Level 135 MEQ/L Potassium Level 3.6 MEQ/L Chloride Level 101 MEQ/L Carbon Dioxide Level 26.2 MEQ/L Anion Gap 8 MEQ/L Estimat Glomerular Filtration Rate 70 ML/MIN MDM Medical Decision Making Medical Screen Exam Complete: Yes Emergency Medical Condition: Yes Medical Record Reviewed: Yes Diagnosis Primary Impression: Agitation Disposition: 03 DISCHARGE TO SNF Condition: Stable Marino Sampson MD Dec 22, 2017 07:45
[2017-12-22 07:47] VITALS: BP 139/58; PULSE 57; RESP 18; O2SAT 99
--- NOTE | 2017-12-22 07:54 | PD ---
Physical Exam Narrative GENERAL: SKIN: Warm and dry. HEAD: Atraumatic. Normocephalic. EYES: Pupils equal and round. No scleral icterus. No injection or drainage. ENT: No nasal bleeding or discharge. Mucous membranes pink and moist. NECK: Trachea midline. No JVD. CARDIOVASCULAR: Regular rate and rhythm. RESPIRATORY: No accessory muscle use. Clear to auscultation. Breath sounds equal bilaterally. GASTROINTESTINAL: Abdomen soft, non-tender, nondistended. Hepatic and splenic margins not palpable. MUSCULOSKELETAL: Extremities without clubbing, cyanosis, or edema. No obvious deformities. NEUROLOGICAL: Awake and alert. No obvious cranial nerve deficits. Motor grossly within normal limits. Five out of 5 muscle strength in the arms and legs. Normal speech. PSYCHIATRIC: Appropriate mood and affect; insight and judgment normal. Data Data Last Documented VS Vital Signs Date Time Temp Pulse Resp B/P (MAP) Pulse Ox O2 Delivery O2 Flow Rate FiO2 12/22/17 07:47 57 18 139/58 (85) 99 12/22/17 06:04 Room Air 12/21/17 21:06 98.7 Orders Orders Complete Blood Count With Diff (12/21/17 21:30) Comprehensive Metabolic Panel (12/21/17 21:30) Urinalysis - C+S If Indicated (12/21/17 21:30) Psych Screen (12/21/17 21:30) Drug Screen, Random Urine (12/21/17 21:30) Haloperidol Inj (Haldol Inj) (12/22/17 07:45) Labs Laboratory Tests Test 12/21/17 21:37 White Blood Count 6.2 TH/MM3 Red Blood Count 4.14 MIL/MM3 Hemoglobin 13.1 GM/DL Hematocrit 38.2 % Mean Corpuscular Volume 92.2 FL Mean Corpuscular Hemoglobin 31.7 PG Mean Corpuscular Hemoglobin Concent 34.4 % Red Cell Distribution Width 13.3 % Platelet Count 226 TH/MM3 Mean Platelet Volume 8.3 FL Neutrophils (%) (Auto) 56.4 % Lymphocytes (%) (Auto) 29.3 % Monocytes (%) (Auto) 12.8 % Eosinophils (%) (Auto) 0.6 % Basophils (%) (Auto) 0.9 % Neutrophils # (Auto) 3.5 TH/MM3 Lymphocytes # (Auto) 1.8 TH/MM3 Monocytes # (Auto) 0.8 TH/MM3 Eosinophils # (Auto) 0.0 TH/MM3 Basophils # (Auto) 0.1 TH/MM3 CBC Comment DIFF FINAL Differential Comment Blood Urea Nitrogen 9 MG/DL Creatinine 0.97 MG/DL Random Glucose 106 MG/DL Total Protein 7.3 GM/DL Albumin 3.7 GM/DL Calcium Level 9.7 MG/DL Alkaline Phosphatase 75 U/L Aspartate Amino Transf (AST/SGOT) 37 U/L Alanine Aminotransferase (ALT/SGPT) 29 U/L Total Bilirubin 0.5 MG/DL Sodium Level 135 MEQ/L Potassium Level 3.6 MEQ/L Chloride Level 101 MEQ/L Carbon Dioxide Level 26.2 MEQ/L Anion Gap 8 MEQ/L Estimat Glomerular Filtration Rate 70 ML/MIN MDM Medical Record Reviewed: Yes Supervised Visit with BRISA: No Narrative Course Patient has a history of schizophrenia and currently just has fixed delusion that care home has a "machine" that is hurting her. However when asked where she is being hurt she cannot verbalize or show. Patient is not actively suicidal or homicidal.. Patient is not agitated or anxious or angry here, however since the facility sent the patient because of agitation, the patient will be given a small dose of Haldol higher to returning her to her facility. Patient CBC shows no leukocytosis, no anemia, no left shift, and normal lately count. Complete metabolic profile: Shows normal electrolytes, normal kidney functions, normal liver functions. Patient is medically cleared, has been psychiatrically screened and will be discharged back to SNF Diagnosis Primary Impression: Agitation Disposition: 03 DISCHARGE TO SNF Condition: Stable Marino Sampson MD Dec 22, 2017 07:54
== END 2017-12-22 09:04 ==
LOC: NEDAMB 20:48 → NEPC 12-22 09:04
DX: R45.1 Restlessness and agitation (principal); E78.00 Pure hypercholesterolemia, unspecified; F20.9 Schizophrenia, unspecified; I10 Essential (primary) hypertension; Z72.0 Tobacco use
CPT/HCPCS: 80053; 85025; 96372; 99283; J1630